=== PATIENT | female | born 1970 | race Caucasian/White ===

== ENCOUNTER 2020-08-09 10:22 | Emergency (ER) | payer BC, OTHER ==
[~2020-08-09 10:22] MED LIST: ASPIRIN 325MG325 MG PO; CLEOCIN HCL300 MG PO
[2020-08-09 11:25] LABS: HEMOGLOBIN 14.5 gm/dl (12.3-15.3); RED BLOOD COUNT 4.51 M/UL (4.00-5.10); WHITE BLOOD COUNT 5.4 K/UL (4.5-11.0)
[2020-08-09 12:03] LABS: BUN/CREATININE RATIO 19 (0-10)
== END 2020-08-09 17:24 | disposition home or self-care (01) ==
LOC: ER1 10:22
PROVIDERS: Emergency Medicine
DX: Z23 Encounter for immunization (principal); U07.1 COVID-19; J12.82 Pneumonia due to coronavirus disease 2019
CPT/HCPCS: 71045; 80053; 82550; 82553; 83874; 84484; 85025; 85379; 96374; 96376; 99284; J2405; J7030; M0245; Q9967